=== PATIENT | female | born 1940 | race African-American/Black ===

== ENCOUNTER 2016-12-07 16:40 | Emergency (ER) | payer SELFPAY ==
[2016-12-07 16:47] VITALS: BMI 18.3
--- NOTE | 2016-12-07 20:37 | PDOC ---
History of Present Illness - History of Present Illness Initial Comments: 12/07/16 21:49 Patient is a 76 year old female with significant medical hx of HTN who is presenting to the ED with weakness, dysuria, and loss of appetite. Patient is from [facility] and is visiting her granddaughter, who is accompanying her to the ED , for the next several months. Granddaughter provided history and reports that the patient has been having symptoms for the past few years but has not been able to see a doctor in [facility]. She states that the patient has not been eating due to loss of appetite and has been losing weight. Patient also has complaint of some constipation and acid reflux, she states that she's been spitting a lot but not vomiting. She is on omeprazole for acid reflux but reports it hasn't been helping. Patient's last BM was this morning and it was normal. The patient was seen at [address] [place] [address] one month ago but her symptoms persist. Denies fevers, chills, cough, peripheral edema, or past surgeries. Social Hx: Denies alcohol, tobacco, or drug use. <Dayna Espinoza - Last Filed: 12/07/16 21:49> - General History Source: Patient, Old Records Exam Limitations: No Limitations <Em Crouch - Last Filed: 12/08/16 00:03> - General Chief Complaint: Weakness Stated Complaint: WEAKNESS Time Seen by Provider: 12/07/16 20:37 Past History <Dayna Espinoza - Last Filed: 12/07/16 21:49> - Past Medical History HTN: Yes - Psycho/Social/Smoking Cessation Hx Anxiety: No Suicidal Ideation: No Smoking History: Never smoked Hx Alcohol Use: No Drug/Substance Use Hx: No Substance Use Type: None <Em Crouch - Last Filed: 12/08/16 00:03> - Past Medical History Allergies/Adverse Reactions: Allergies Allergy/AdvReac Type Severity Reaction Status Date / Time No Known Allergies Allergy Verified 12/07/16 16:46 Home Medications: Ambulatory Orders Famotidine [Pepcid] 40 mg PO DAILY #30 tablet 12/07/16 Nitrofurantoin Monohyd/M-Cryst [Macrobid -] 100 mg PO BID #14 capsule 12/07/16 Review of Systems - Review of Systems Comments:: 12/07/16 22:08 GENERAL/CONSTITUTIONAL: Weakness, loss of appetite, weight loss. No fever or chills. HEAD, EYES, EARS, NOSE AND THROAT: No change in vision. No ear pain or discharge. No sore throat. CARDIOVASCULAR: No chest pain or shortness of breath. RESPIRATORY: No cough, wheezing, or hemoptysis. GASTROINTESTINAL: Constipation. No nausea, vomiting, or diarrhea. GENITOURINARY: Dysuria. No frequency, or change in urination. MUSCULOSKELETAL: No joint or muscle swelling or pain. No neck or back pain. ENDOCRINE: No increased thirst. No abnormal weight change. SKIN: No rash NEUROLOGIC: No headache, vertigo, loss of consciousness, or change in strength/ sensation. <Dayna Espinoza - Last Filed: 12/07/16 21:49> *Physical Exam - Vital Signs Last Vital Signs Temp Pulse Resp BP Pulse Ox 98.0 F 108 H 20 148/97 98 12/07/16 16:42 12/07/16 16:42 12/07/16 16:42 12/07/16 16:42 12/07/16 16:42 - Physical Exam Comments: 12/07/16 22:09 GENERAL: Awake, alert, and fully oriented, in no acute distress HEAD: No signs of trauma EYES: PERRLA, EOMI, sclera anicteric, conjunctiva clear ENT: Auricles normal inspection, hearing grossly normal, nares patent, oropharynx clear without exudates. Moist mucosa NECK: Normal ROM, supple, no lymphadenopathy, JVD, or masses LUNGS: Breath sounds equal, clear to auscultation bilaterally. No wheezes, and no crackles HEART: Regular rate and rhythm, normal S1 and S2, no murmurs, rubs or gallops ABDOMEN: Soft, diffuse abdominal tenderness, normoactive bowel sounds. No guarding, no rebound. No masses EXTREMITIES: Normal range of motion, no edema. No clubbing or cyanosis. No cords, erythema, or tenderness NEUROLOGICAL: Cranial nerves II through XII grossly intact. Normal speech, normal gait SKIN: Warm, Dry, normal turgor, no rashes or lesions noted. HEMATOLOGIC/LYMPHATIC: No anemia, easy bleeding, or history of blood clots. ALLERGIC/IMMUNOLOGIC: No hives or skin allergy. <Dayna Espinoza - Last Filed: 12/07/16 21:49> - Vital Signs Last Vital Signs Temp Pulse Resp BP Pulse Ox 98.0 F 108 H 20 148/97 98 12/07/16 16:42 12/07/16 16:42 12/07/16 16:42 12/07/16 16:42 12/07/16 16:42 <Em Crouch - Last Filed: 12/08/16 00:03> ED Treatment Course - LABORATORY CBC & Chemistry Diagram: 12/07/16 21:25 12/07/16 21:25 - ADDITIONAL ORDERS Additional order review: Laboratory Results 12/07/16 12/07/16 21:25 21:25 Sodium Cancelled Potassium Cancelled Chloride Cancelled Carbon Dioxide Cancelled Anion Gap Cancelled BUN Cancelled Creatinine Cancelled Creat Clearance w eGFR Cancelled Random Glucose Cancelled Calcium Cancelled Phosphorus Cancelled Magnesium Cancelled Total Bilirubin Cancelled AST Cancelled ALT Cancelled Alkaline Phosphatase Cancelled Creatine Kinase Cancelled Troponin I Cancelled Total Protein Cancelled Albumin Cancelled Lipase Cancelled 12/07/16 21:25 RBC 4.66 MCV 86.4 MCHC 31.7 L RDW 14.7 MPV 7.8 Neutrophils % Y Lymphocytes % Y <Dayna Espinoza - Last Filed: 12/07/16 21:49> - LABORATORY CBC & Chemistry Diagram: 12/07/16 21:25 12/07/16 22:10 <Em Crouch - Last Filed: 12/08/16 00:03> Medical Decision Making - Medical Decision Making 12/07/16 21:01 76-year-old female with history of GERD presents the emergency Department with complaints of several month history of poor appetite, weight loss and abdominal pain with some dysuria. Differential diagnosis includes but is not limited to: Malignancy, UTI, electrolyte abnormality, dehydration, toxic/metabolic derangement, atypical presentation of ACS. Plan: 1. Labs 2. EKG 3. Chest x-ray 4. Urine 5. Observe and reevaluate 12/07/16 23:43 Addendum: Labs were reviewed and are noted in the EMR. CXR is negative. The urine analysis shows +LE and nitrites. Since the patient has symptoms will treat for UTI. urine culture has been sent. I will also prescribe pepcid for this sensation of acid reflux. I have advised the patient's grand daughter to have her f/u with a primary care physician and to return to the ED if her Sx persist, worsen or new Sx arise. 12/08/16 00:01 Repeat vital signs are: temp: 100.0 rectal, HR 82 and BP 184/92. I have discussed the importance of f/u with PCP for monitoring of HTN. Since first BP was not severely elevated, will not start anti-hypertensive agents at this time. <Em Crouch - Last Filed: 12/08/16 00:03> *DC/Admit/Observation/Transfer - Attestations Scribe Attestion: 12/07/16 22:10 Documentation prepared by Dayna Espinoza, acting as medical underwriter for Em Crouch MD. <Dayna Espinoza - Last Filed: 12/07/16 21:49> - Discharge Dispostion Admit: No - Attestations Physician Attestion: 12/07/16 21:02 I, Dr. Em Crouch, attest that the scribes documentation that appears above has been prepared under my direction and personally reviewed by me in its entirety. I confirmed that the note above accurately reflects all work, treatment, procedures, and medical decision-making performed by me. <Em Crouch - Last Filed: 12/08/16 00:03> Diagnosis at time of Disposition: Poor appetite, UTI (urinary tract infection) - Discharge Dispostion Disposition: HOME Condition at time of disposition: Stable - Prescriptions Prescriptions: Nitrofurantoin Monohyd/M-Cryst [Macrobid -] 100 mg PO BID #14 capsule Famotidine [Pepcid] 40 mg PO DAILY #30 tablet - Patient Instructions Printed Discharge Instructions: DI for Urinary Tract Infection (UTI) Additional Instructions: You are being treated for a urinary tract infection. You're being prescribed Macrobid 100 mgtake 1 tablet twice daily for 7 days. You are also being prescribed Pepcid 40 mg 1 tablet daily for your sensation of acid reflux. Please follow-up with your primary care physician within one week and return to the emergency department if your symptoms persist, worsen, or new symptoms arise.
[2016-12-07 21:31] LABS: MCH 27.4 pg (25.7-33.7); MCHC 31.7 g/dl (32.0-36.0); MEAN CELL VOLUME 86.4 fl (80-96); MEAN PLT VOLUME 7.8 fl (7.5-11.1); PLATELET COUNT 226 K/MM3 (134-434); RDW 14.7 % (11.6-15.6); WHITE BLOOD COUNT 7.2 K/mm3 (4.0-10.0)
[2016-12-07 22:05] LABS: PLATELET ESTIMATE ADEQUATE (NORMAL)
[2016-12-07 22:31] LABS: URINE APPEARANCE CLEAR; URINE BILIRUBIN NEGATIVE (NEGATIVE); URINE BLOOD NEGATIVE (NEGATIVE); URINE COLOR STRAW; URINE GLUCOSE (UA) NEGATIVE (NEGATIVE); URINE KETONE NEGATIVE (NEGATIVE); URINE NITRITE POSITIVE (NEGATIVE); URINE PROTEIN NEGATIVE (NEGATIVE); URINE UROBILINOGEN NEGATIVE E.U./dl (0.2-1.0)
[2016-12-07 22:32] LABS: URINE LEUK ESTERASE TRACE (NEGATIVE)
[2016-12-07 22:33] LABS: URINE BACTERIA RARE /hpf (NONE SEEN); URINE WBC 1 /hpf (3-5)
[2016-12-07 22:47] LABS: ALBUMIN 3.9 g/dl (3.4-5.0); ANION GAP 6 (8-16); BILIRUBIN,TOTAL 0.3 mg/dL (0.2-1.0); CALCIUM 9.1 mg/dL (8.5-10.1); CO2 30 mmol/L (21-32); CREATININE 0.8 mg/dL (0.55-1.02); GLUCOSE,RANDOM 96 mg/dL (74-106); SGOT/AST 26 U/L (15-37); SGPT/ALT 33 U/L (12-78); TOT PROT 7.6 g/dl (6.4-8.2)
[2016-12-07 22:49] LABS: ALK PHOS 99 U/L (45-117); TROPONIN I < 0.02 ng/ml (0.00-0.05)
[2016-12-07] MEDS ORDERED: NITROFURANTOIN MACROCRYSTAL 50 MG CAPSULE (FP) PO SCH (23:00)
[2016-12-07] MEDS ORDERED: NITROFURANTOIN MACROCRYSTAL 50 MG CAPSULE (FP) ONE (23:10)
[2016-12-07 23:55] VITALS: BP 184/95; PULSE 82; TEMP 100
[2016-12-08] MEDS ORDERED: ACETAMINOPHEN 500 MG TABLET (FP) PO ONE
[2016-12-08] MEDS ORDERED: ACETAMINOPHEN 325 MG TABLET (FP) ONE (00:16)
--- NOTE | 2016-12-08 11:34 | EKG ---
Test Reason : Blood Pressure : / mmHG Vent. Rate : 094 BPM Atrial Rate : 094 BPM P-R Int : 164 ms QRS Dur : 072 ms QT Int : 354 ms P-R-T Axes : 079 056 060 degrees QTc Int : 442 ms SINUS RHYTHM WITH PREMATURE ATRIAL COMPLEXES POSSIBLE LEFT ATRIAL ENLARGEMENT SEPTAL INFARCT , AGE UNDETERMINED ABNORMAL ECG NO PREVIOUS ECGS AVAILABLE Confirmed by NORMA OLIVA MD ([id number]) on 12/08/2016 11:34:36 AM Referred By: Confirmed By:NORMA OLIVA MD
== END 2016-12-08 00:22 | disposition home or self-care (01) ==
LOC: JER 16:40
DX: N39.0 Urinary tract infection, site not specified (principal); I10 Essential (primary) hypertension
CPT/HCPCS: 36415; 71020-TC; 80053; 81003; 81015; 82550; 83690; 84484; 85025; 87086; 87186; 93005; 93010; 99281-25

== ENCOUNTER 2018-01-07 14:41 | Observation (INO) | payer SELFPAY ==
--- NOTE | 2018-01-07 15:03 | PDOC ---
History of Present Illness - General Chief Complaint: Nausea Stated Complaint: SYNCOPE - History of Present Illness Initial Comments: 01/07/18 15:21 77 year old Creole-speaking female with a hx of gastric ulcer and hypertension presents to the ED for near-syncopal episode and epigastric burning pain. She states that she was at [employer] when her daughter noticed her stumping over and slowing lowering herself to the ground. She denies loss of consciousness, but says that she was very weak and did not respond appropriately. Reports this happening to her once before and being taken to [facility] where she got a chest x ray that was normal. Daughter reports that epigastric pain is burning in nature and shoots up through her chest and into her neck. Denies shortness of breath, fevers, chills, nausea, vomiting, diarrhea. Allergies: none Smoke: none Alcohol: none Surgeries: none Past History - Past Medical History Allergies/Adverse Reactions: Allergies Allergy/AdvReac Type Severity Reaction Status Date / Time No Known Allergies Allergy Verified 12/07/16 16:46 Home Medications: Ambulatory Orders Famotidine [Pepcid] 40 mg PO DAILY #30 tablet 12/07/16 Nitrofurantoin Monohyd/M-Cryst [Macrobid -] 100 mg PO BID #14 capsule 12/07/16 HTN: Yes - Suicide/Smoking/Psychosocial Hx Smoking History: Never smoked Hx Alcohol Use: No Drug/Substance Use Hx: No Substance Use Type: None Review of Systems - Review of Systems Able to Perform ROS?: No Is the patient limited Tajik proficient: Yes *Physical Exam - Physical Exam Comments: 01/07/18 15:19 GENERAL: A&Ox3, no acute distress EYES: PERRLA, EOMI ENT: Moist mucus membranes NECK: No JVD LUNGS: CTA, no wheezes HEART: RRR, no murmurs ABDOMEN: Soft, tender to palpation in the epigastrum MUSCULOSKELETAL: No CVA Tenderness EXTREMITIES: 2+ pulses, no edema. NEUROLOGICAL: Cranial nerves II-XII intact. ED Treatment Course - LABORATORY CBC & Chemistry Diagram: 01/07/18 16:30 01/07/18 16:30 Medical Decision Making - Medical Decision Making 01/07/18 15:20 77 year old female with a hx of HTN and gastric ulcers presenting for near- syncope and epigastric abdominal pain -CBC -CMP -Mag -EKG -Troponin -Lipase -CXR -will r/o acs and likely admit tele-obs for cardiac workup 01/07/18 17:49 -EKG: NSR, LVH, Qtc 416 -will admit tele obs for cardiac workup and GI -pepcid given *DC/Admit/Observation/Transfer Diagnosis at time of Disposition: Chest pain - Discharge Dispostion Condition at time of disposition: Stable Decision to Admit order: Yes - Referrals - Patient Instructions - Post Discharge Activity
[2018-01-07] MEDS ORDERED: FAMOTIDINE 20 MG/50 ML IVPB 20 MG/50 ML MG IVPB ONE ×2 (16:22→18:05)
[2018-01-07] MEDS ORDERED: ACETAMINOPHEN 1000 MG/100 ML VIAL (NON FORMULARY) IVPB ONE (16:22)
[2018-01-07] MEDS ORDERED: MAG HYDROX/AL HYDROX/SIMETH 30 ML UNIT-DOSE CUP PO ONE (16:22)
--- NOTE | 2018-01-07 16:22 | PDOC ---
Attending Attestation - Resident Resident Name: Joe Diego - ED Attending Attestation I have performed the following: I have examined & evaluated the patient, The case was reviewed & discussed with the resident, I agree w/resident's findings & plan, Exceptions are as noted - Medical Decision Making 01/07/18 16:46 A portion of this note was written by my scribe, under my supervision. This is a 77-year-old female patient with history of gastritis visiting from [facility] presents with near syncope. The patient was in her usual state of health and had a near-syncopal episode while at [employer]. No trauma. Witnessed by family. Patient's assessment developed left upper quadrant pain reminiscent or peptic ulcer disease. States that she felt generally weak but now feels much better. Denies chest pain or short of breath. Denies lightheadedness. I suspect the patient likely had vasovagal near syncope in the setting of gastritis. However, given the age, the patient would benefit from further investigation to rule out cardiac etiology such as blood work including troponin EKG. The patient may be placed on telemetry for observation given her symptoms. She had a several episodes 2 weeks ago at [facility]. <Ravindra Khan - Last Filed: 01/07/18 16:46> - HPI HPI: Patient is a 77 year old [place] Creole speaking female, with PMHx of HTN, gastric ulcers, who presents today s/p near syncopal episode (x2) at [employer] this morning. Family states that she was kneeling down at [employer] when she slowly began to fall forward. She also comes in complaining of epigastric/chest pain that she describes as burning sensation that pushes up into her chest. She states that this pain feels similar to her gastric ulcers in the past. She also reports associated weakness. She was seen at [facility] approx. 2 weeks ago for a similar issue however the x-ray's turned out to be negative. Patient is visiting from [facility] since October 2017 and will return in 2 weeks. Her family member states that she has become noticeably thinner since her arrival to the [facility]. She denies loss of consciousness, denies an chest pain or pressure, denies shortness of breath. 01/07/18 16:33 - Physicial Exam PE: GENERAL: Awake, alert, and fully oriented, in no acute distress. HEAD: No signs of trauma EYES: PERRLA, EOMI, sclera anicteric, conjunctiva clear ENT: Auricles normal inspection, hearing grossly normal, nares patent. Moist mucosa LUNGS: Breath sounds equal, clear to auscultation bilaterally. No wheezes, and no crackles HEART: Regular rate and rhythm, normal S1 and S2, no murmurs, rubs or gallops ABDOMEN: Soft, LUQ tendenress, no rebound , no guarding. No masses EXTREMITIES: Normal range of motion, no edema. No clubbing or cyanosis. No cords, erythema, or tenderness NEUROLOGICAL: Cranial nerves II through XII grossly intact. Normal speech. SKIN: Warm, Dry, normal turgor, no rashes or lesions noted. 01/07/18 16:54 <Shara Santana - Last Filed: 01/07/18 16:55> Heart Score/ECG Review #1 ECG reviewed & interpreted by me at: 15:30 01/07/18 16:48 NSR 81, no std/lonny, LVH, Q wave V1-V2, T wave flat III, QTC 418 msec <Ravindra Khan - Last Filed: 01/07/18 16:46>
[2018-01-07 16:46] LABS: BASO % 1.3 % (0-2.0); EOS % 1.6 % (0-4.5); HEMATOCRIT 42.3 % (32.4-45.2); HEMOGLOBIN 13.7 GM/dL (10.7-15.3); LYMPH % 25.3 % (8-40); MCH 27.9 pg (25.7-33.7); MCHC 32.5 g/dl (32.0-36.0); MEAN CELL VOLUME 85.9 fl (80-96); MEAN PLT VOLUME 8.4 fl (7.5-11.1); MONO % 7.3 % (3.8-10.2); NEUT % 64.5 % (42.8-82.8); PLATELET COUNT 294 K/MM3 (134-434); RBC 4.92 M/mm3 (3.60-5.2); RDW 13.7 % (11.6-15.6); WHITE BLOOD COUNT 5.9 K/mm3 (4.0-10.0)
[2018-01-07 17:09] LABS: ALBUMIN 4.2 g/dl (3.4-5.0); ANION GAP 6 (8-16); BILIRUBIN,TOTAL 0.4 mg/dL (0.2-1.0); BLOOD UREA NITROGEN 9 mg/dL (7-18); CALCIUM 9.4 mg/dL (8.5-10.1); CHLORIDE 106 mmol/L (98-107); CO2 32 mmol/L (21-32); CREATININE 0.7 mg/dL (0.55-1.02); GLUCOSE,RANDOM 93 mg/dL (74-106); MAGNESIUM 2.2 mg/dL (1.8-2.4); POTASSIUM 4.4 mmol/L (3.5-5.1); SGOT/AST 19 U/L (15-37); SGPT/ALT 27 U/L (12-78); SODIUM 144 mmol/L (136-145); TOT PROT 8.1 g/dl (6.4-8.2)
[2018-01-07 17:11] LABS: ALK PHOS 94 U/L (45-117)
[2018-01-07] MEDS ORDERED: MAG HYDROX/AL HYDROX/SIMETH 30 ML UNIT-DOSE CUP ONE (18:04)
[2018-01-07] MEDS ORDERED: ACETAMINOPHEN INJECTION 100 ML IVPB ONE (18:04)
--- NOTE | 2018-01-08 00:28 | HP ---
CHIEF COMPLAINT: Near-Syncope PCP: None HISTORY OF PRESENT ILLNESS: The patient is creole speaking. 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 The patient is a 77 yo female w/ PMH GERD w/ Gastric ulcer, HTN who presents to the ED after having a near syncopal episode in [employer]. The patient states that she felt a burning pain which began in the epigastric region and radiated to the left flank as well as her chest and back. The pain had no alleviating or exacerbating factors and was constant. The patient associates a "warm feeling" around her mouth with this pain as well as a headache. The patient has experienced this warm feeling intermittently for the past week and states that she feels the need to spit more often when she has it. The patient's saliva tastes either sour or like whichever food she ate last. During this episode, the patient was observed by her daughter to slump over and start to sag towards the ground at which point EMS was activated. The patient denies LOC, dizziness, palpitations, SOB, trauma, fevers, chills, nausea, vomiting, diarrhea or dysuria. ER course was notable for: (1) EKG showing q wakes in V1 and V2 as well as LHV (2) Troponin negative x1 (3) VSS, labs unremarkable. Recent Travel: none PAST MEDICAL HISTORY: same as in HPI PAST SURGICAL HISTORY: Patient denies Social History: Smoking: former smoker, quit 1974 Alcohol: denies Drugs: denies Family History: non-contributory Allergies No Known Allergies Allergy (Verified 12/07/16 16:46) HOME MEDICATIONS: Home Medications Medication Instructions Recorded Famotidine [Pepcid] 40 mg PO DAILY #30 tablet 12/07/16 Nitrofurantoin Monohyd/M-Cryst 100 mg PO BID #14 capsule 12/07/16 [Macrobid -] REVIEW OF SYSTEMS CONSTITUTIONAL: Absent: fever, chills, diaphoresis, generalized weakness, malaise, loss of appetite, weight change HEENT: Absent: rhinorrhea, nasal congestion, throat pain, throat swelling, difficulty swallowing, mouth swelling, ear pain, eye pain, visual changes CARDIOVASCULAR: Absent: palpitations, irregular heart rate, lightheadedness, peripheral edema RESPIRATORY: Absent: cough, shortness of breath, dyspnea with exertion, orthopnea, wheezing, stridor, hemoptysis GASTROINTESTINAL: Absent: abdominal distension, nausea, vomiting, diarrhea, constipation, melena, hematochezia GENITOURINARY: Absent: dysuria, frequency, urgency, hesitancy, hematuria, flank pain, genital pain MUSCULOSKELETAL: Absent: myalgia, arthralgia, joint swelling, back pain, neck pain SKIN: Absent: rash, itching, pallor HEMATOLOGIC/IMMUNOLOGIC: Absent: easy bleeding, easy bruising, lymphadenopathy, frequent infections ENDOCRINE: Absent: unexplained weight gain, unexplained weight loss, heat intolerance, cold intolerance NEUROLOGIC: Absent: focal weakness or paresthesias, dizziness, seizure, mental status changes, bladder or bowel incontinence PSYCHIATRIC: Absent: anxiety, depression, suicidal or homicidal ideation, hallucinations. PHYSICAL EXAMINATION Vital Signs - 24 hr 01/07/18 20:45 Temperature 98.8 F Pulse Rate [ 80 Right] Respiratory 18 Rate Blood Pressure 140/80 [Right Arm] O2 Sat by Pulse 97 Oximetry (%) GENERAL: Awake, alert, and fully oriented, in no acute distress. HEAD: Normal with no signs of trauma. EYES: Pupils equal, round and reactive to light, extraocular movements intact, sclera anicteric, conjunctiva clear. No lid lag. EARS, NOSE, THROAT: oropharynx clear without exudates. Moist mucous membranes. NECK: Normal range of motion, supple without lymphadenopathy, JVD, or masses. LUNGS: Breath sounds equal, clear to auscultation bilaterally. No wheezes, and no crackles. No accessory muscle use. HEART: Regular rate and rhythm, normal S1 and S2 without murmur, rub or gallop. ABDOMEN: Soft, not distended, normoactive bowel sounds. There is tenderness in the RUQ and RLQ as well as voluntary guarding. no rebound, no masses. No hepatomegaly or splenomegaly. LOWER EXTREMITIES: 2+ pulses, warm, well-perfused. No calf tenderness. No peripheral edema. NEUROLOGICAL: Cranial nerves II-X intact. Normal speech. Normal gait. SKIN: Warm, dry, normal turgor, no rashes or lesions noted, normal capillary refill. Laboratory Results - last 24 hr 01/07/18 01/07/18 01/07/18 16:30 16:30 16:30 WBC 5.9 RBC 4.92 Hgb 13.7 Hct 42.3 MCV 85.9 MCH 27.9 MCHC 32.5 RDW 13.7 Plt Count 294 D MPV 8.4 Absolute Neuts (auto) 3.8 Neutrophils % 64.5 Lymphocytes % 25.3 D Monocytes % 7.3 D Eosinophils % 1.6 Basophils % 1.3 Nucleated RBC % 0 Sodium 144 Potassium 4.4 Chloride 106 Carbon Dioxide 32 Anion Gap 6 L BUN 9 Creatinine 0.7 Creat Clearance w eGFR > 60 Random Glucose 93 Calcium 9.4 Magnesium 2.2 Total Bilirubin 0.4 D AST 19 ALT 27 Alkaline Phosphatase 94 Creatine Kinase 63 Troponin I < 0.02 Total Protein 8.1 Albumin 4.2 Lipase 180 ASSESSMENT/PLAN: The patient is a 77 yo f w/ PMH GERD and HTN who comes into the ED after a presyncopal episode while in [employer]. #Presyncope likley 2/2 vasovagal rxn, r/o cardiac cause -Troponin negative x1, will trend -EKG with possible old ischemia, no acute events -orthostatic vital signs. -fall precautions -echo in AM -UA #Abdominal burning pain and guarding -UA abdomen -Protonix 40mg IV #FEN -no fluids indicated -lytes WNL, replete PRN -sodium controlled diet #Prophy -Hep SQ 5k units TID #Dispo -Admit to tele obs Visit type - Emergency Visit Emergency Visit: Yes ED Registration Date: 01/07/18 Care time: The patient presented to the Emergency Department on the above date and was hospitalized for further evaluation of their emergent condition. - New Patient This patient is new to me today: Yes Date on this admission: 01/08/18 - Critical Care Critical Care patient: No Hospitalist Screening - Colonoscopy Questionnaire Colonoscopy Questionnaire: Colonoscopy Questionnaire - Patient: 50 - 75 years old and never had a screening colonoscopy: Unknown History of colon or rectal polyps, or CA: Unknown History of IBD, Crohn's disease or UC: Unknown History of abdominal radiation therapy as a child: Unknown - Relative: 1 with colon or rectal CA, or polyps at age 60 or younger: Unknown Colon or rectal CA diagnosed at age 45 or younger: Unknown Multiple relatives with colon or rectal CA: Unknown - Outcome: Screening Result: Negative Screen
[2018-01-08 02:23] LABS: URINE APPEARANCE SLCLOUDY; URINE BILIRUBIN NEGATIVE (<2.0 mg/dL); URINE COLOR LTYELLOW; URINE GLUCOSE (UA) NEGATIVE (NEGATIVE); URINE KETONE NEGATIVE (NEGATIVE); URINE LEUK ESTERASE TRACE (NEGATIVE); URINE NITRITE POSITIVE (NEGATIVE); URINE PROTEIN NEGATIVE (NEGATIVE); URINE UROBILINOGEN NEGATIVE mg/dL (0.2-1.0)
--- NOTE | 2018-01-08 02:26 | PN ---
Teaching Attending Note Name of Resident: Elbert Mcmanus ATTENDING PHYSICIAN STATEMENT I saw and evaluated the patient. Chart, data, imaging reviewed. I reviewed the resident's note and discussed the case with the resident. I agree with the resident's findings and plan as documented. SUBJECTIVE: 77 yo woman w/ GERD w/ Gastric ulcer, HTN brought to hospital after having a near syncopal episode in [employer] on 01/07. This was associated with a burning sensation in epigastric region which radiated to chest and back along with sour sensation in mouth. There was no shortness of breath. EKG with no acute ischemic changes, trop neg. OBJECTIVE: Last Vital Signs Temp Pulse Resp BP Pulse Ox 97.9 F 82 17 132/79 98 01/07/18 23:58 01/07/18 23:58 01/07/18 23:58 01/07/18 23:58 01/07/18 23:58 general -nad, aaox3 heent- atraumatic, normocephalic neck -supple cv s1 + s2+ rrr chest - cta b/l abdomen -tender on palpation, BS+, some guarding ext- no pedal edema Abnormal Lab Results 01/07/18 16:30 Anion Gap 6 L NSR, no std/lonny, LVH, Q wave V1-V2 CXR reviewed by me, clear lung parenchyma, pending official report ASSESSMENT AND PLAN: #77yo woman with near syncope and epigastric pain likely GERD given complaints of bitter/sour taste in mouth vs PUD. SHould test for H pylori. ACS is being ruled out. -tele/observation -transthrocic echo -check orthostatics -trend troponins -trial of PPI -prontonix -send stool for H pylori antigen -U/S of abdomen given tenderness -heparin sc for dvt ppx -see resident note for details
[2018-01-08 02:40] LABS: EPI CELLS RARE /HPF (FEW); URINE BACTERIA FEW /hpf (NONE SEEN); URINE MUCUS RARE
[2018-01-08] MEDS: HEPARIN NA (PORCINE) 5,000 UNITS/ML 1ML VIAL SQ SCH ×2 (06:10→17:22)
[2018-01-08] MEDS ORDERED: HEPARIN NA (PORCINE) 5,000 UNITS/ML 1ML VIAL ONE (06:20)
[2018-01-08 06:45] LABS: BASO % 0.7 % (0-2.0); EOS % 1.7 % (0-4.5); HEMATOCRIT 39.3 % (32.4-45.2); LYMPH % 35.1 % (8-40); MCH 28.5 pg (25.7-33.7); MCHC 33.1 g/dl (32.0-36.0); MEAN CELL VOLUME 85.9 fl (80-96); MEAN PLT VOLUME 8.7 fl (7.5-11.1); NEUT % 54.5 % (42.8-82.8); PLATELET COUNT 225 K/MM3 (134-434); RBC 4.57 M/mm3 (3.60-5.2); RDW 13.8 % (11.6-15.6)
[2018-01-08 07:11] LABS: ALBUMIN 3.6 g/dl (3.4-5.0); ANION GAP 7 (8-16); BLOOD UREA NITROGEN 15 mg/dL (7-18); CHLORIDE 106 mmol/L (98-107); CO2 28 mmol/L (21-32); GLUCOSE,RANDOM 82 mg/dL (74-106); MAGNESIUM 2.3 mg/dL (1.8-2.4); POTASSIUM 4.2 mmol/L (3.5-5.1); SODIUM 141 mmol/L (136-145)
[2018-01-08 07:15] LABS: ALK PHOS 79 U/L (45-117); BILIRUBIN,TOTAL 0.8 mg/dL (0.2-1.0); CREATININE 0.7 mg/dL (0.55-1.02); PHOSPHOROUS 4.3 mg/dL (2.5-4.9); SGOT/AST 18 U/L (15-37); SGPT/ALT 25 U/L (12-78); TOT PROT 7.3 g/dl (6.4-8.2)
[2018-01-08] MEDS ORDERED: PANTOPRAZOLE SODIUM 40 MG VIAL IVPUSH SCH (10:00)
[2018-01-08] MEDS ORDERED: PANTOPRAZOLE SODIUM 40 MG VIAL ONE (11:55)
[2018-01-08 12:21] VITALS: BP 109/72; PULSE 74; TEMP 98
--- NOTE | 2018-01-08 14:15 | EKG ---
Test Reason : Blood Pressure : / mmHG Vent. Rate : 081 BPM Atrial Rate : 081 BPM P-R Int : 156 ms QRS Dur : 072 ms QT Int : 360 ms P-R-T Axes : 076 043 036 degrees QTc Int : 418 ms NORMAL SINUS RHYTHM POSSIBLE LEFT ATRIAL ENLARGEMENT LEFT VENTRICULAR HYPERTROPHY SEPTAL INFARCT (CITED ON OR BEFORE 07-DEC-2016) ABNORMAL ECG WHEN COMPARED WITH ECG OF 07-DEC-2016 21:20, PREMATURE ATRIAL COMPLEXES ARE NO LONGER PRESENT Confirmed by LADY GARCÍA MD ([id number]) on 01/08/2018 2:14:37 PM Referred By: Confirmed By:LADY GARCÍA MD
--- NOTE | 2018-01-08 18:05 | DS ---
Physical Examination Vital Signs: Vital Signs Temperature 98 F 01/08/18 11:48 Pulse Rate 74 01/08/18 11:48 Respiratory Rate 20 01/08/18 11:48 Blood Pressure 109/72 01/08/18 11:48 O2 Sat by Pulse Oximetry (%) 98 01/08/18 09:00 Labs: CBC, BMP 01/08/18 05:50 01/08/18 05:50 Discharge Summary Reason For Visit: CHEST PAIN Current Active Problems Chest pain (Acute) Hospital Course: [facility] #[id number] GERD, patient is going back to [facility] in 2 weeks. Condition: Improved - Instructions Diet, Activity, Other Instructions: Please return to the ED with new, persistent, or worsening symptoms. Please follow-up with your primary care provider within 2-3 days. Referrals: Talib Jiménez MD [Staff Physician] - (Please follow-up with your primary care provider within 2-3 days. ) Disposition: HOME - Home Medications Comprehensive Discharge Medication List: Ambulatory Orders Famotidine [Pepcid] 40 mg PO DAILY #30 tablet 12/07/16 Nitrofurantoin Monohyd/M-Cryst [Macrobid -] 100 mg PO BID #14 capsule 12/07/16 Omeprazole 20 mg PO DAILY #30 tablet. 01/08/18
--- NOTE | 2018-01-11 11:57 | EKG ---
Test Reason : Blood Pressure : / mmHG Vent. Rate : 077 BPM Atrial Rate : 077 BPM P-R Int : 154 ms QRS Dur : 066 ms QT Int : 368 ms P-R-T Axes : 073 043 039 degrees QTc Int : 416 ms NORMAL SINUS RHYTHM POSSIBLE LEFT ATRIAL ENLARGEMENT LEFT VENTRICULAR HYPERTROPHY CANNOT RULE OUT SEPTAL INFARCT (CITED ON OR BEFORE 07-DEC-2016) ABNORMAL ECG WHEN COMPARED WITH ECG OF 07-JAN-2018 15:28, NO SIGNIFICANT CHANGE WAS FOUND Confirmed by NORMA OLIVA MD ([id number]) on 01/11/2018 11:57:18 AM Referred By: Confirmed By:NORMA OLIVA MD
== END 2018-01-08 18:05 | disposition home or self-care (01) ==
LOC: JER 14:41 → JERBED 17:52
PROVIDERS: ADMIT Internal Medicine; ATTEND Registered Nurse
PROC: 3E033NZ Introduction of Analgesics, Hypnotics, Sedatives into Peripheral Vein, Percutaneous Approach (ICD-10-PCS; principal; 2018-01-07)
PROC: 3E033GC Introduction of Other Therapeutic Substance into Peripheral Vein, Percutaneous Approach (ICD-10-PCS; 2018-01-07)
DX: R07.9 Chest pain, unspecified (principal); R55 Syncope and collapse; R10.13 Epigastric pain; I10 Essential (primary) hypertension; K21.9 Gastro-esophageal reflux disease without esophagitis
CPT/HCPCS: 36415; 71045-TC-FY; 76705-TC; 80053; 81003; 81015; 82550; 83690; 83735; 84100; 84484; 85025; 93005; 93010; 93306-TC; 99283-25; G0378; J0131; J1644